=== PATIENT | female | born 1995 | race Caucasian/White ===

== ENCOUNTER → 2016-09-10 | Outpatient (CLI) | payer BC ==
[~2016-09-10] MED LIST: BCPILLS PO
[2016-09-12 13:22] LABS: CHLAMYDIA TRACH RNA*** NOT DETECTED (NOT DETECTED); GC (NEIS GONORRHOEAE)RNA** NOT DETECTED (NOT DETECTED)
== END | disposition home or self-care (01) ==
LOC: C.LABSPEC 13:44
PROVIDERS: ATTEND Obstetrics & Gynecology
DX: Z01.419 Encounter for gynecological examination (general) (routine) without abnormal findings (principal)

== ENCOUNTER 2016-12-15 21:11 | Observation (INO) | payer BC ==
[~2016-12-15] VITALS: Ht 160 cm; Wt 58.4 kg
[2016-12-15] MEDS ORDERED: SODIUM CHLORIDE 0.9% 1000ML 1,000 ML IV STA ×2 (21:32)
[2016-12-15 21:57] LABS: BASO % 0.2 %; BASO ABS # 0.03 K/uL (0-0.2); COMPLETE YES; EOS % 1.6 %; IG% 0.3 %; LYMPH ABS # 2.23 K/uL (1.2-3.4); MEAN CELL VOLUME 91.7 fL (80-100); MEAN CORPUSCULAR HEMOGLOBIN 31.6 pg (25-34); MEAN CORPUSCULAR HGB CONC 34.4 g/dl (32-36); MEAN PLATELET VOLUME 10.2 fL (7.4-10.4); MONO % 6.7 %; NEUT % 77.2 %; PLATELET COUNT 286 K/uL (130-400); RED BLOOD COUNT 4.69 M/uL (4.2-5.4); WHITE BLOOD COUNT 15.97 K/uL (4.8-10.8)
--- NOTE | 2016-12-15 22:10 | DIAGNOSTIC IMAGING REPORT ---
CT OF THE HEAD WITHOUT CONTRAST CLINICAL HISTORY: Syncope. Head injury. COMPARISON STUDY: Head CT July 24, 2010. CT DOSE: 537.48 mGy.cm TECHNIQUE: Helical axial images of the head were obtained without IV contrast. Automated exposure control was utilized for the study. FINDINGS: No acute intracranial hemorrhage, midline shift or mass effect is present. Brain volume is normal. Ventricular system is normal. The basilar cisterns are patent. There are no extra-axial collections. Salmon-white differentiation is maintained. There are no findings to suggest acute dural sinus thrombosis or acute territorial infarct. There is no calvarial fracture. Visualized portions of the sinuses and mastoid air cells are clear. IMPRESSION: No acute intracranial findings. Electronically signed by: Hosea Garcia M.D. 12/15/2016 10:09 PM Dictated Date/Time: 12/15/2016 10:06 PM
[2016-12-15 22:16] LABS: BUN/CREATININE RATIO 10.8 (10-20); CALCIUM 9.3 mg/dl (8.5-10.1); CREATININE 0.93 mg/dl (0.60-1.20); POTASSIUM 3.1 mmol/L (3.5-5.1)
[2016-12-15 22:27] LABS: PHOSPHORUS 2.7 mg/dl (2.5-4.9); THYROID STIMULATING HORMONE 2.27 uIu/ml (0.300-4.500)
[2016-12-15 22:31] LABS: PREG INTERNAL NEGATIVE QC NEG CLEAR BACKGROUND; PREG INTERNAL POSITIVE QC POS CONTROL LINE
[2016-12-15] MEDS ORDERED: BCPILLS PO (22:36)
[2016-12-15 22:44] LABS: URINE APPEARANCE CLEAR (CLEAR); URINE BILIRUBIN NEG (NEG); URINE COLOR YELLOW; URINE NITRITE NEG (NEG); URINE PH 7.5 (4.5-7.5); UROBILINOGEN NEG (NEG)
[2016-12-15 22:47] LABS: MANUAL MICROSCOPIC REQUIRED? NO; REVIEW REQ? NO
[2016-12-15] MEDS ORDERED: POTASSIUM CHLORIDE 10 MEQ TABCR PO STA (23:00)
[2016-12-15 23:07] LABS: BENZODIAZEPINE, URINE NEG (NEG); COCAINE,URINE NEG (NEG); PHENCYCLIDINE, URINE NEG (NEG)
[2016-12-15] MEDS ORDERED: ACETAMINOPHEN 325 MG TAB PO PRN (23:15)
[2016-12-15] MEDS ORDERED: MAGNESIUM HYDROXIDE SUSP 30 ML UDC PO PRN (23:15)
[2016-12-15] MEDS ORDERED: ALUMINUM/MAGNESIUM/SIMETH (MAALOX MAX) 30 ML UDC PO PRN (23:15)
[2016-12-15] MEDS ORDERED: POLYETHYLENE (MIRALAX) 17 GM PACK PO PRN (23:15)
[2016-12-15] MEDS ORDERED: ONDANSETRON INJ 2 MG/ML 2 ML VIAL IV PRN (23:15)
[2016-12-15] MEDS ORDERED: ACETAMINOPHEN 325 MG TAB ONE (23:32)
--- NOTE | 2016-12-15 23:53 | EMERGENCY ROOM VISIT NOTE ---
History First contact with patient: 21:25 Chief Complaint: SYNCOPE Stated Complaint: PASSED OUT 3 TIMES, DIZZINESS Nursing Triage Summary: pt reports multiple syncopal episodes today , vomitted X 1 after 1st episode denies cp or sob History of Present Illness The patient is a 21 year old female who presents to the Emergency Room with complaints of 3 syncopal episodes today. Patient states she got lightheaded and passed out and hit her head. She briefly passed out. She sat down had a piece of pizza and then passed out again and then one more time. All 3 of the syncopal episodes she got lightheaded prior to the syncopal episodes. This is all within 1 hour timeframe. She did vomit after the first syncopal episode. Patient states that she had an echo a few months ago that was negative. She had is that she was having chest pains. She does not know who did this. Patient states she has not eaten since lunch time. She was trying to get food around 8:30 tonight. She was not outside. 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 Patient denies chest pain, dyspnea, fever, chills, cold symptoms, recent illness, diarrhea, abdominal pain, numbness, tingling, weakness , vision problems, balance problems. She is tolerate by mouth fluids and foods. No family history of aneurysm or sudden . No cardiac history in the family. Patient denies alcohol or drug use. Patient states she felt fine all day. Review of Systems See HPI for pertinent positives & negatives. A total of 10 systems reviewed and were otherwise negative. Past Medical/Surgical History Medical Problems: (1) Syncope and collapse none Social History Smoking Status: Never Smoker Smokeless Tobacco Use: No Alcohol Use: none Drug Use: none Marital Status: in relationship Occupation Status: student Current/Historical Medications Scheduled Control Pills ( Control Pills), 1 TAB PO DAILY Allergies Coded Allergies: Banana (Unverified Allergy, Mild, 12/15/16) Latex1 -Allergic Contact Dermititis (Unverified Allergy, Mild, 12/15/16) Physical Exam Vital Signs Date Time Temp Pulse Resp B/P (MAP) Pulse Ox O2 Delivery O2 Flow Rate FiO2 12/15/16 23:29 99 18 103/58 99 Room Air 12/15/16 22:35 81 18 108/56 99 Room Air 12/15/16 22:18 74 111/51 97 104/64 97 95/77 12/15/16 21:48 90 12/15/16 21:18 36.8 88 18 103/66 99 Room Air Physical Exam VITALS: Vitals are noted on the nurse's note and reviewed by myself. Vital signs stable. GENERAL: Pleasant female answering questions appropriately, in no acute distress , nondiaphoretic, well-developed well-nourished. SKIN: The skin was without rashes, erythema, edema, or bruising. There is no tenting of the skin. Capillary reflex less than 2 seconds. HEAD: Normocephalic atraumatic. EARS: External auditory canals clear, tympanic membranes pearly salmon without erythema or effusion bilaterally. EYES: Pupils equal round and reactive to light and accommodation. Conjunctivae without injection, sclerae without icterus. Extraocular movements intact. NOSE: Patent, turbinates without inflammation or discharge. No sinus tenderness. MOUTH: Mucous membranes moist. Pharynx without erythema or exudate. Uvula midline. Airway patent. Tongue does not deviate. NECK: Supple without nuchal rigidity. No lymphadenopathy. No thyromegaly. Cervical spine is nontender. No JVD. HEART: Regular rate and rhythm without murmurs gallops or rubs. LUNGS: Clear to auscultation bilaterally without wheezes, rales or rhonchi. No dullness to percussion. No retractions or accessory muscle use. ABDOMEN: Positive bowel sounds x 4. Normal tympanic percussion. Soft, nontender, without masses or organomegaly. Poe sign negative. No guarding or rebound tenderness. MUSCULOSKELETAL: No muscle atrophy, erythema, or edema noted. 5 out of 5 strength throughout NEURO: Patient was alert and oriented to person place and time. Normal sensation to light and sharp touch. No focal neurological deficits. Cranial nerves II-12 grossly intact. No pronator drift. Cerebellar exam intact. Medical Decision & Procedures Laboratory Results 12/15/16 21:45 Red Blood Count 4.69, Mean Corpuscular Volume 91.7, Mean Corpuscular Hemoglobin 31.6, Mean Corpuscular Hemoglobin Concent 34.4, Mean Platelet Volume 10.2, Neutrophils (%) (Auto) 77.2, Lymphocytes (%) (Auto) 14.0, Monocytes (%) (Auto) 6.7, Eosinophils (%) (Auto) 1.6, Basophils (%) (Auto) 0.2, Neutrophils # (Auto) 12.34, Lymphocytes # (Auto) 2.23, Monocytes # (Auto) 1.07, Eosinophils # (Auto) 0.25, Basophils # (Auto) 0.03 12/15/16 21:45 Test 12/15/16 21:45 12/15/16 21:49 White Blood Count 15.97 K/uL (4.8-10.8) Red Blood Count 4.69 M/uL (4.2-5.4) Hemoglobin 14.8 g/dL (12.0-16.0) Hematocrit 43.0 % (37-47) Mean Corpuscular Volume 91.7 fL (80-100) Mean Corpuscular Hemoglobin 31.6 pg (25-34) Mean Corpuscular Hemoglobin Concent 34.4 g/dl (32-36) Platelet Count 286 K/uL (130-400) Mean Platelet Volume 10.2 fL (7.4-10.4) Neutrophils (%) (Auto) 77.2 % Lymphocytes (%) (Auto) 14.0 % Monocytes (%) (Auto) 6.7 % Eosinophils (%) (Auto) 1.6 % Basophils (%) (Auto) 0.2 % Neutrophils # (Auto) 12.34 K/uL (1.4-6.5) Lymphocytes # (Auto) 2.23 K/uL (1.2-3.4) Monocytes # (Auto) 1.07 K/uL (0.11-0.59) Eosinophils # (Auto) 0.25 K/uL (0-0.5) Basophils # (Auto) 0.03 K/uL (0-0.2) RDW Standard Deviation 41.7 fL (36.4-46.3) RDW Coefficient of Variation 12.4 % (11.5-14.5) Immature Granulocyte % (Auto) 0.3 % Immature Granulocyte # (Auto) 0.05 K/uL (0.00-0.02) Urine Color YELLOW Urine Appearance CLEAR (CLEAR) Urine pH 7.5 (4.5-7.5) Urine Specific [place] 1.010 (1.000-1.030) Urine Protein NEG (NEG) Urine Glucose (UA) NEG (NEG) Urine Ketones NEG (NEG) Urine Occult Blood NEG (NEG) Urine Nitrite NEG (NEG) Urine Bilirubin NEG (NEG) Urine Urobilinogen NEG (NEG) Urine Leukocyte Esterase NEG (NEG) Anion Gap 7.0 mmol/L (3-11) Est Creatinine Clear Calc Drug Dose 79.8 ml/min Estimated GFR () 102.5 Estimated GFR (Non- 88.5 BUN/Creatinine Ratio 10.8 (10-20) Calcium Level 9.3 mg/dl (8.5-10.1) Phosphorus Level 2.7 mg/dl (2.5-4.9) Magnesium Level 2.0 mg/dl (1.8-2.4) Total Bilirubin 0.4 mg/dl (0.2-1) Direct Bilirubin 0.1 mg/dl (0-0.2) Aspartate Amino Transf (AST/SGOT) 15 U/L (15-37) Alanine Aminotransferase (ALT/SGPT) 22 U/L (12-78) Alkaline Phosphatase 47 U/L (45-117) Total Protein 7.6 gm/dl (6.4-8.2) Albumin 4.0 gm/dl (3.4-5.0) Thyroid Stimulating Hormone (TSH) 2.270 uIu/ml (0.300-4.500) Human Chorionic Gonadotropin, Qual NEG (NEG) Urine Opiates Screen NEG (NEG) Urine Methadone, Qualitative NEG (NEG) Urine Barbiturates NEG (NEG) Urine Phencyclidine (PCP) Level NEG (NEG) Ur Amphetamine/Methamphetamine NEG (NEG) MDMA (Ecstasy) Screen NEG (NEG) Urine Benzodiazepines Screen NEG (NEG) Urine Cocaine Metabolite NEG (NEG) Urine Marijuana (THC) POS (NEG) Bedside Glucose 115 mg/dl (70-90) Medications Administered Medications (Trade) Dose Ordered Sig/Brooke Route Start Time Stop Time Status Last Admin Dose Admin Sodium Chloride 1,000 ml @ 999 mls/hr Q1H1M STAT IV 12/15/16 21:32 12/15/16 22:32 DC 12/15/16 21:32 999 MLS/HR Sodium Chloride 1,000 ml @ 125 mls/hr Q8H STAT IV 12/15/16 21:32 12/16/16 05:31 12/15/16 21:32 125 MLS/HR Potassium Chloride (Klor-Con M10) 40 meq NOW STAT PO 12/15/16 23:00 12/15/16 23:01 DC 12/15/16 23:28 40 MEQ ED Course Prior records/ancillary studies reviewed. Triage Nursing notes reviewed. Additional history obtained from family. The patient's history was concerning for syncope. Differential diagnosis: Etiologies such as vasovagal event, infection, hypoglycemia, electrolyte abnormalities, cardiac sources, intracerebral event, toxicologic, neurologic, as well as others were entertained. Physical examination: Patient alert, interactive and well-appearing ER treatment provided: IV hydration with normal saline On reassessment the patient felt better. Diagnostics interpretation by me: ECG: Normal sinus, normal intervals, no acute ST-T wave changes. Impression normal sinus rhythm interpreted by myself The labs revealed positive marijuana. Leukocytosis, most likely stress induced from syncopal episode Imaging studies: CT OF THE HEAD WITHOUT CONTRAST CLINICAL HISTORY: Syncope. Head injury. COMPARISON STUDY: Head CT July 24, 2010. CT DOSE: 537.48 mGy.cm TECHNIQUE: Helical axial images of the head were obtained without IV contrast. Automated exposure control was utilized for the study. FINDINGS: No acute intracranial hemorrhage, midline shift or mass effect is present. Brain volume is normal. Ventricular system is normal. The basilar cisterns are patent. There are no extra-axial collections. Salmon-white differentiation is maintained. There are no findings to suggest acute dural sinus thrombosis or acute territorial infarct. There is no calvarial fracture. Visualized portions of the sinuses and mastoid air cells are clear. IMPRESSION: No acute intracranial findings. Electronically signed by: Hosea Garcia M.D. 12/15/2016 10:09 PM I was unable to find the patient's recent echo. Case and is bent looked in [facility] system and was not there either. Consultation: A consultation was placed with Dr Nails, hospitalist. The case was discussed and diagnostics were reviewed. The patient was evaluated in the ER for further treatment. This appears to be consistent with recurrent syncope. Patient will be evaluated by medicine for possible admission. She had 3 syncopal episodes within 1 hour period. patient had a positive UDS screen. Mild hypokalemia. No other abnormality is in the above workup. Per family she had a negative echo within the past year. They're unsure who did this echo but wa done here in town. By the evaluation outlined above emergent etiologies such as infection, hypoglycemia, electrolyte abnormalities, cardiac sources, intracerebral event, toxicologic, neurologic,as well as others were deemed relatively unlikely. The pt informed about the findings as listed above. All questions were answered and pleased with the treatment. Case reviewed with my attending. Medical Decision As above Impression Primary Impression: Syncope Additional Impression: Hypokalemia Departure Information Dispostion Being Evaluated By Hospitalist Condition GOOD Referrals No Doctor, Assigned (PCP) Patient Instructions My [facility] Problem Qualifiers Primary Impression: Syncope Syncope type: unspecified Qualified Codes: R55 - Syncope and collapse
[2016-12-16] VITALS (9 sets, daily range): BP systolic 88–111; BP diastolic 51–70; PULSE 52–87; TEMP 36.3–36.9; O2SAT 97–100; Ht 160 cm; Wt 58.4 kg
[2016-12-16] MEDS ORDERED: IV FLUIDS COMPLETED PRN (01:30)
--- NOTE | 2016-12-16 01:32 | History and Physical ---
History & Physical Date & Time of Service: Dec 16, 2016 at 01:09 Chief Complaint: Syncope An Collapse Primary Care Physician: No Doctor, Assigned History of Present Illness Source: patient 21 y/o F - denies any active medical issues. Pt became acutely lightheaded and lost consciousness at a pizza place. There was no reported seizure activity, tongue biting or incontinence. She was not post-ictal. She recovered within less than one minute. She sat down afterward and became lightheaded and again lost consciousness. This occurred a third time prompting her to visit the ER. She had sustained minor head trauma after her initial syncopal episode. She has not had previous syncopal episodes. The pt states that for several years she has had short episodes of chest pain and shortness of breath. She recently had an echocardiogram, arranged by her primary MD, which she states was normal. Initial labs are notable for hypokalemia. An EKG shows an irregular sinus rhythm. Social History Smoking Status: Never Smoker Smokeless Tobacco Use: No Drug Use: none Marital Status: in relationship Housing status: lives with family Occupational Status: student Multi-Drug Resistant Organisms History of MDRO: No Allergies Coded Allergies: Banana (Unverified Allergy, Mild, 12/15/16) Latex1 -Allergic Contact Dermititis (Unverified Allergy, Mild, 12/15/16) Home Medications Scheduled Control Pills ( Control Pills), 1 TAB PO DAILY Review of Systems Constitutional: No fever, No chills, No sweats Eyes: No worsening of vision ENT: No hearing loss, No unusual epistaxis, No nasal symptoms Respiratory: No cough, No sputum, No wheezing Cardiovascular: No chest pain, No orthopnea, No PND Abdomen: No pain, No nausea, No vomiting Musculoskeletal: No joint pain Genitourinary - Female: No dysuria, No urinary frequency, No urinary urgency Neurologic: + problem reported (syncope x 3 as above), No memory loss, No paralysis, No weakness Psychiatric: No depression symptoms Endocrine: No fatigue Hematologic / Lymphatic: No abnormal bleeding/bruising Integumentary: No rash Allergic / Immunologic: No environmental allergies Physical Exam Vital Signs Date Time Temp Pulse Resp B/P (MAP) Pulse Ox O2 Delivery O2 Flow Rate FiO2 12/16/16 00:30 36.9 70 16 101/63 100 Room Air 12/15/16 23:29 99 18 103/58 99 Room Air 12/15/16 22:35 81 18 108/56 99 Room Air 12/15/16 22:18 74 111/51 97 104/64 97 95/77 12/15/16 21:48 90 12/15/16 21:18 36.8 88 18 103/66 99 Room Air General Appearance: WD/WN, no apparent distress Head: normocephalic Eyes: normal inspection, PERRL, EOMI ENT: normal ENT inspection, pharynx normal Neck: supple, no JVD Respiratory/Chest: chest non-tender, lungs clear, normal breath sounds Cardiovascular: regular rate, rhythm, no edema, no gallop, + systolic murmur (2 /6) Abdomen/GI: normal bowel sounds, non tender, soft Back: normal inspection, no CVA tenderness, no muscle spasm, normal range of motion Extremities/Musculoskelatal: normal inspection, no calf tenderness, normal capillary refill, no pedal edema, normal range of motion 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: 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 as tested, no motor/sensory deficits, alert, normal mood/affect, normal reflexes, oriented x 3 Skin: normal color, warm/dry, no rash Diagnostics Laboratory Results Results Past 24 Hours Test 12/15/16 21:45 12/15/16 21:49 Range/Units White Blood Count 15.97 4.8-10.8 K/uL Red Blood Count 4.69 4.2-5.4 M/uL Hemoglobin 14.8 12.0-16.0 g/dL Hematocrit 43.0 37-47 % Mean Corpuscular Volume 91.7 80-100 fL Mean Corpuscular Hemoglobin 31.6 25-34 pg Mean Corpuscular Hemoglobin Concent 34.4 32-36 g/dl Platelet Count 286 130-400 K/uL Mean Platelet Volume 10.2 7.4-10.4 fL Neutrophils (%) (Auto) 77.2 % Lymphocytes (%) (Auto) 14.0 % Monocytes (%) (Auto) 6.7 % Eosinophils (%) (Auto) 1.6 % Basophils (%) (Auto) 0.2 % Neutrophils # (Auto) 12.34 1.4-6.5 K/uL Lymphocytes # (Auto) 2.23 1.2-3.4 K/uL Monocytes # (Auto) 1.07 0.11-0.59 K/uL Eosinophils # (Auto) 0.25 0-0.5 K/uL Basophils # (Auto) 0.03 0-0.2 K/uL RDW Standard Deviation 41.7 36.4-46.3 fL RDW Coefficient of Variation 12.4 11.5-14.5 % Immature Granulocyte % (Auto) 0.3 % Immature Granulocyte # (Auto) 0.05 0.00-0.02 K/uL Urine Color YELLOW Urine Appearance CLEAR CLEAR Urine pH 7.5 4.5-7.5 Urine Specific [place] 1.010 1.000-1.030 Urine Protein NEG NEG Urine Glucose (UA) NEG NEG Urine Ketones NEG NEG Urine Occult Blood NEG NEG Urine Nitrite NEG NEG Urine Bilirubin NEG NEG Urine Urobilinogen NEG NEG Urine Leukocyte Esterase NEG NEG Sodium Level 141 136-145 mmol/L Potassium Level 3.1 3.5-5.1 mmol/L Chloride Level 106 98-107 mmol/L Carbon Dioxide Level 28 21-32 mmol/L Anion Gap 7.0 3-11 mmol/L Blood Urea Nitrogen 10 7-18 mg/dl Creatinine 0.93 0.60-1.20 mg/dl Est Creatinine Clear Calc Drug Dose 79.8 ml/min Estimated GFR () 102.5 Estimated GFR (Non- 88.5 BUN/Creatinine Ratio 10.8 10-20 Random Glucose 106 70-99 mg/dl Calcium Level 9.3 8.5-10.1 mg/dl Phosphorus Level 2.7 2.5-4.9 mg/dl Magnesium Level 2.0 1.8-2.4 mg/dl Total Bilirubin 0.4 0.2-1 mg/dl Direct Bilirubin 0.1 0-0.2 mg/dl Aspartate Amino Transf (AST/SGOT) 15 15-37 U/L Alanine Aminotransferase (ALT/SGPT) 22 12-78 U/L Alkaline Phosphatase 47 45-117 U/L Total Protein 7.6 6.4-8.2 gm/dl Albumin 4.0 3.4-5.0 gm/dl Thyroid Stimulating Hormone (TSH) 2.270 0.300-4.500 uIu/ml Human Chorionic Gonadotropin, Qual NEG NEG Urine Opiates Screen NEG NEG Urine Methadone, Qualitative NEG NEG Urine Barbiturates NEG NEG Urine Phencyclidine (PCP) Level NEG NEG Ur Amphetamine/Methamphetamine NEG NEG MDMA (Ecstasy) Screen NEG NEG Urine Benzodiazepines Screen NEG NEG Urine Cocaine Metabolite NEG NEG Urine Marijuana (THC) POS NEG Bedside Glucose 115 70-90 mg/dl Diagnostic Radiology CT head: no acute findings Impression Assessment and Plan 21 y/o F - denies any active medical issues. Pt became acutely lightheaded and lost consciousness at a pizza place. There was no reported seizure activity, tongue biting or incontinence. She was not post-ictal. She recovered within less than one minute. She sat down afterward and became lightheaded and again lost consciousness. This occurred a third time prompting her to visit the ER. She had sustained minor head trauma after her initial syncopal episode. She has not had previous syncopal episodes. The pt states that for several years she has had short episodes of chest pain and shortness of breath. She recently had an echocardiogram, arranged by her primary MD, which she states was normal. Initial labs are notable for hypokalemia. An EKG shows an irregular sinus rhythm. 1) Syncope - will be monitored on telemetry overnight. Description of episode is consistent with vaso-vagal syncope. She recently had an echo which should be sourced AM. May need a Halter if this recurs. She did not have any CP or SOB during her syncopal episodes. 2) Murmur is present on exam - EKG is irregular - Source recent echo. 3) Hypokalemia - replaced Full code - SCDs Total time for this admit including review of labs, meds, EKG - discussion with pt and ER attending 30 min Level of Care Telemetry Advanced Directives Existing Living Will: No Existing Power of Shield Operator: No Resuscitation Status FULL RESUSCITATION VTE Prophylaxis VTE Risk Assessment Done? Y/N: Yes Risk Level: Very Low Given or contraindicated: SCD's
[2016-12-16] MEDS ORDERED: DEXTROSE 5% IV ONE (02:00)
[2016-12-16] MEDS ORDERED: MAG SULFATE IV ONE (02:00)
[2016-12-16] MEDS: D5NSS + 20MEQ KCL 1,000 ML IV SCH ×2 (02:38→07:45)
[2016-12-16 08:37] LABS: BUN/CREATININE RATIO 15.8 (10-20); CALCIUM 8.4 mg/dl (8.5-10.1); CREATININE 0.65 mg/dl (0.60-1.20)
[2016-12-16 08:38] LABS: POTASSIUM 4.1 mmol/L (3.5-5.1)
--- NOTE | 2016-12-16 13:57 | Hospitalist Progress Note ---
Hospitalist Progress Note Date of Service Dec 16, 2016. Subjective Pt evaluation today including: conversation w/ patient, conversation w/ family , physical exam, chart review, lab review, review of studies, review of inpatient medication list Patient seen and evaluated with family at bedside. Tele reviewed and no arrhythmias noted. Runs NSR with mild occ. elif in mid-50s. Reports H/O anemia (per mother) stating they figured she was having GI bleeding but couldn't find the source and this resolved and this was when she was a young child. Reports ongoing H/O intermittent CP with the longest episode lasting 15 minutes which prompted the echo 4 months ago. She still follows with a [facility] for her primary care. She has no knowledge of a murmur. Tox screen was positive for marijuana but did not discuss with with patient due to family members at bedside. No known family members with heart issues or sudden cardiac due to HOCM. Patient played sports at a younger age and didn't have syncopal issues. She is able to recall the events leading up to her syncopal episodes and no focal neuro deficits and no seizure-like activity. Constitutional: + problem reported (throbbing headache), No fever, No chills Eyes: No worsening of vision ENT: No hearing loss, No nasal symptoms, No trouble swallowing Respiratory: No cough, No shortness of breath Cardiovascular: No chest pain, No palpitations Abdomen: No pain, No nausea, No vomiting, No diarrhea, No constipation Musculoskeletal: No swelling, No calf pain Female : No dysuria Skin: No rash, No itch Medications Current Inpatient Medications Medications (Trade) Dose Ordered Sig/Brooke Route Start Time Stop Time Status Last Admin Dose Admin Acetaminophen (Tylenol Tab) 650 mg Q4H PRN PO 12/15/16 23:15 01/14/17 23:14 Al Hydrox/Mg Hydrox/Simethicone (Maalox Max Susp) 15 ml Q4H PRN PO 12/15/16 23:15 01/14/17 23:14 Magnesium Hydroxide (Milk Of Magnesia Susp) 30 ml Q12H PRN PO 12/15/16 23:15 01/14/17 23:14 Ondansetron HCl (Zofran Inj) 4 mg Q6H PRN IV 12/15/16 23:15 01/14/17 23:14 Polyethylene (Miralax Powder Packet) 17 gm DAILY PRN PO 12/15/16 23:15 01/14/17 23:14 Potassium Chloride/Dextrose/ Sod Cl 1,000 ml @ 150 mls/hr Q6H40M IV 12/16/16 02:00 12/16/16 15:19 12/16/16 07:45 150 MLS/HR Miscellaneous (Iv Fluids Completed) 1 ea PRN PRN N/A 12/16/16 01:30 12/16/17 01:29 Objective Vital Signs Date Time Temp Pulse Resp B/P (MAP) Pulse Ox O2 Delivery O2 Flow Rate FiO2 12/16/16 11:54 Room Air 12/16/16 11:11 36.3 52 16 102/65 (77) 100 60 99/64 (76) 58 111/69 (83) 12/16/16 08:53 Room Air 12/16/16 07:56 36.8 68 15 88/54 (65) 100 91/54 (66) 12/16/16 07:45 Room Air 12/16/16 04:00 36.7 65 18 92/51 (65) 99 Room Air 12/16/16 04:00 Room Air 12/16/16 00:45 87 98/63 (75) 12/16/16 00:45 80 103/68 (80) 12/16/16 00:45 80 101/63 (76) 12/16/16 00:30 36.9 70 16 101/63 100 Room Air 12/15/16 23:29 99 18 103/58 99 Room Air 12/15/16 22:35 81 18 108/56 99 Room Air 12/15/16 22:18 74 111/51 97 104/64 97 95/77 12/15/16 21:48 90 12/15/16 21:18 36.8 88 18 103/66 99 Room Air Physical Exam General Appearance: WD/WN, no apparent distress Eyes: sclerae normal ENT: hearing grossly normal Neck: supple, no JVD, trachea midline Respiratory/Chest: lungs clear, normal breath sounds, no respiratory distress, no accessory muscle use Cardiovascular: regular rate, rhythm, no gallop, no murmur, + pertinent finding (possibly an extra click sound but unable to apprec. murmur) Abdomen: normal bowel sounds, non tender, soft Extremities: non-tender, no pedal edema 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iatric: alert, oriented x 3 Skin: normal color, warm/dry Laboratory Results Last 24 Hours Test 12/15/16 21:45 12/15/16 21:49 12/16/16 08:02 White Blood Count 15.97 K/uL Red Blood Count 4.69 M/uL Hemoglobin 14.8 g/dL Hematocrit 43.0 % Mean Corpuscular Volume 91.7 fL Mean Corpuscular Hemoglobin 31.6 pg Mean Corpuscular Hemoglobin Concent 34.4 g/dl Platelet Count 286 K/uL Mean Platelet Volume 10.2 fL Neutrophils (%) (Auto) 77.2 % Lymphocytes (%) (Auto) 14.0 % Monocytes (%) (Auto) 6.7 % Eosinophils (%) (Auto) 1.6 % Basophils (%) (Auto) 0.2 % Neutrophils # (Auto) 12.34 K/uL Lymphocytes # (Auto) 2.23 K/uL Monocytes # (Auto) 1.07 K/uL Eosinophils # (Auto) 0.25 K/uL Basophils # (Auto) 0.03 K/uL RDW Standard Deviation 41.7 fL RDW Coefficient of Variation 12.4 % Immature Granulocyte % (Auto) 0.3 % Immature Granulocyte # (Auto) 0.05 K/uL Urine Color YELLOW Urine Appearance CLEAR Urine pH 7.5 Urine Specific [place] 1.010 Urine Protein NEG Urine Glucose (UA) NEG Urine Ketones NEG Urine Occult Blood NEG Urine Nitrite NEG Urine Bilirubin NEG Urine Urobilinogen NEG Urine Leukocyte Esterase NEG Sodium Level 141 mmol/L 143 mmol/L Potassium Level 3.1 mmol/L 4.1 mmol/L Chloride Level 106 mmol/L 114 mmol/L Carbon Dioxide Level 28 mmol/L 25 mmol/L Anion Gap 7.0 mmol/L 4.0 mmol/L Blood Urea Nitrogen 10 mg/dl 10 mg/dl Creatinine 0.93 mg/dl 0.65 mg/dl Est Creatinine Clear Calc Drug Dose 79.8 ml/min 114.2 ml/min Estimated GFR () 102.5 148.1 Estimated GFR (Non- 88.5 127.8 BUN/Creatinine Ratio 10.8 15.8 Random Glucose 106 mg/dl 92 mg/dl Calcium Level 9.3 mg/dl 8.4 mg/dl Phosphorus Level 2.7 mg/dl Magnesium Level 2.0 mg/dl Total Bilirubin 0.4 mg/dl Direct Bilirubin 0.1 mg/dl Aspartate Amino Transf (AST/SGOT) 15 U/L Alanine Aminotransferase (ALT/SGPT) 22 U/L Alkaline Phosphatase 47 U/L Total Protein 7.6 gm/dl Albumin 4.0 gm/dl Thyroid Stimulating Hormone (TSH) 2.270 uIu/ml Human Chorionic Gonadotropin, Qual NEG Urine Opiates Screen NEG Urine Methadone, Qualitative NEG Urine Barbiturates NEG Urine Phencyclidine (PCP) Level NEG Ur Amphetamine/Methamphetamine NEG MDMA (Ecstasy) Screen NEG Urine Benzodiazepines Screen NEG Urine Cocaine Metabolite NEG Urine Marijuana (THC) POS Bedside Glucose 115 mg/dl Assessment and Plan 21 y/o F - denies any active medical issues. Pt became acutely lightheaded and [place] consciousness at a pizza place. There was no reported seizure activity, tongue biting or incontinence. She was not post-ictal. She recovered within less than one minute. She sat down afterward and became lightheaded and again lost consciousness. This occurred a third time prompting her to visit the ER. She had sustained minor head trauma after her initial syncopal episode. She has not had previous syncopal episodes. The pt states that for several years she has had short episodes of chest pain and shortness of breath. She recently had an echocardiogram, arranged by her primary MD, which she states was normal. Initial labs are notable for hypokalemia. An EKG shows an irregular sinus rhythm. Syncope and Collapse: - No further syncopal episodes during hospital stay. Does have a throbbing headache. No arrhythmia on monitor - No FMHx of sudden cardiac suggesting HOCM - Would likely benefit from Holter monitoring if echocardiogram is unremarkable Murmur: - Was not able to appreciate on examination but a possible click noise - possible MVP? - Intial EKG with NSR with sinus arrhythmia that was not present on repeat EKG Hypokalemia: RESOLVED - Monitor and replete as necessary DVT Prophylaxis: DARI/SCDs Disposition: Monitor throughout the day for any further arrhythmias and check echo. - Likely D/C tomorrow with possible holter monitoring Continued [facility] stay due to: other (rhythm monitoring) Discharge planning: home
[2016-12-17 00:24] VITALS: BP 105/71; PULSE 60; TEMP 36.9; O2SAT 99
[2016-12-17 04:00] VITALS: BP 96/61; PULSE 71; TEMP 36.6; O2SAT 97
[2016-12-17 07:44] VITALS: BP 96/61; PULSE 65; TEMP 36.6; O2SAT 98
[2016-12-17 09:03] VITALS: BP_SYST 100; BP_SYST 104; BP_SYST 91; BP_DIAS 58; BP_DIAS 64; BP_DIAS 69; PULSE 69; TEMP 36.8; O2SAT 97
--- NOTE | 2016-12-17 09:36 | ECHOCARDIOGRAM REPORT ---
*NOTICE TO RECEIVING LIBERTARIAN AGENCY This information is strictly Confidential and protected under [place] law. [place] law prohibits you from making any further disclosure of this information unless further disclosure is expressly permitted by the written consent of the person to whom it pertains or is authorized by law. A general authorization for the release of medical or other information is not sufficient for this purpose. Hospital accepts no responsibility if the information is made available to any other person, INCLUDING THE PATIENT. Interpretation Summary * Name: YAMINI PERRY Study Date: 12/17/2016 08:33 AM BP: 96/61 mmHg * Patient Location: [facility]\S\N275\S\2 HR: 65 * : 1995 (M/d/yyyy) Gender: Female Height: 63 in * Age: 21 yrs Ethnicity: CA Weight: 128 lb * Ordering Physician: Brijesh Jean Baptiste * Performed By: Barby Choi * * Reason For Study: SYNCOPE * BSA: 1.6 m2 * Normal transthoracic echocardiogram. * -- Conclusions -- * Left ventricular systolic function is normal. * Right ventricular systolic pressure is normal. Procedure Details * A complete two-dimensional transthoracic echocardiogram was performed (2D, M-mode, Doppler and color flow Doppler). Left Ventricle * The left ventricle is normal in size. * There is normal left ventricular wall thickness. * Ejection Fraction = 55-60%. * Left ventricular systolic function is normal. Right Ventricle * The right ventricle is normal in size and function. Atria * The left atrial size is normal. * Right atrial size is normal. Mitral Valve * The mitral valve is grossly normal. * Significant mitral regurgitation is absent. Tricuspid Valve * The tricuspid valve is not well visualized, but is grossly normal. * There is trace tricuspid regurgitation. * Right ventricular systolic pressure is normal. Aortic Valve * The aortic valve is normal in structure and function. * No hemodynamically significant valvular aortic stenosis. * There is no significant aortic regurgitation. Pericardium/Pleural * There is no pericardial effusion. Great Vessels * Normal inferior vena cava diameter and respiratory variation suggests normal central venous pressure. MMode 2D Measurements and Calculations IVSd 0.71 cm IVSs 0.96 cm LVIDd 4.3 cm LVIDs 3.1 cm LVPWd 0.95 cm LVPWs 1.4 cm IVS/LVPW 0.75 FS 28.2 % EDV(Teich) 84.1 ml ESV(Teich) 38.0 ml EF(Teich) 54.8 % EDV(cubed) 80.8 ml ESV(cubed) 29.9 ml EF(cubed) 63.0 % % IVS thick 34.5 % % LVPW thick 48.9 % LV mass(C)d 112.1 grams LV mass(C)dI 70.1 grams/m\S\2 LV mass(C)s 112.7 grams LV mass(C)sI 70.5 grams/m\S\2 SV(Teich) 46.1 ml SI(Teich) 28.8 ml/m\S\2 SV(cubed) 50.9 ml SI(cubed) 31.8 ml/m\S\2 ACS 1.3 cm LA dimension 2.4 cm asc Aorta Diam 2.6 cm LVOT diam 1.6 cm LVOT area 2.0 cm\S\2 LVAd ap4 30.0 cm\S\2 LVLd ap4 8.2 cm EDV(MOD-sp4) 89.3 ml EDV(sp4-el) 92.4 ml LVAs ap4 17.4 cm\S\2 LVLs ap4 6.7 cm ESV(MOD-sp4) 38.3 ml ESV(sp4-el) 38.1 ml EF(MOD-sp4) 57.1 % EF(sp4-el) 58.8 % LVAd ap2 31.5 cm\S\2 LVLd ap2 8.6 cm EDV(MOD-sp2) 97.6 ml EDV(sp2-el) 97.9 ml LVAs ap2 18.2 cm\S\2 LVLs ap2 6.9 cm ESV(MOD-sp2) 39.9 ml ESV(sp2-el) 41.0 ml EF(MOD-sp2) 59.1 % EF(sp2-el) 58.1 % LVLd %diff 4.0 % EDV(MOD-bp) 95.4 ml LVLs %diff 2.3 % ESV(MOD-bp) 40.0 ml EF(MOD-bp) 58.1 % SV(MOD-sp4) 51.0 ml SI(MOD-sp4) 31.9 ml/m\S\2 SV(MOD-sp2) 57.7 ml SI(MOD-sp2) 36.1 ml/m\S\2 SV(MOD-bp) 55.4 ml SI(MOD-bp) 34.7 ml/m\S\2 SV(sp4-el) 54.4 ml SI(sp4-el) 34.0 ml/m\S\2 SV(sp2-el) 56.9 ml SI(sp2-el) 35.6 ml/m\S\2 Doppler Measurements and Calculations MV E max jo 96.0 cm/sec MV A max jo 48.5 cm/sec MV E/A 2.0 MV dec time 0.25 sec Ao V2 max 138.9 cm/sec Ao max PG 7.7 mmHg Ao max PG (full) 2.9 mmHg CARSON(V,A) 1.6 cm\S\2 CARSON(V,D) 1.6 cm\S\2 LV V1 max PG 4.8 mmHg LV V1 max 109.5 cm/sec PA V2 max 66.3 cm/sec PA max PG 1.8 mmHg PI end-d jo 85.9 cm/sec TR max jo 200.1 cm/sec
--- NOTE | 2016-12-17 11:42 | Discharge Instructions ---
Discharge Instructions Date of Service Dec 17, 2016. Admission Reason for Admission: Syncope An Collapse Discharge Discharge Diagnosis / Problem: Syncope and Collapse, possible from vasovagal or dehydration Discharge Goals Goal(s): Decrease discomfort, Improve function, Increase independence, Improve disease control, Improve nutritional status, Learn about illness, Diagnostic testing, Therapeutic intervention, Prevent Disease Progression, Specific goals Activity Recommendations Activity Limitations: resume your previous activity (as tolerated) . Instructions / Follow-Up Instructions / Follow-Up you have Syncope and Collapse, possible from vasovagal or dehydration you have Hypokalemia: you can take over the counter Aleve, for headache and neck pain ( take Aleve as instructed and after snack) you was using marijuana, I would recommend to stay away of this substance - you need to follow up with your primary care physician in 1 week, we are helping you to set up appointment - you possible need to have outpatient Holter monitor setting up with primary care physician and then follow up - take medication as instructed, never overdose or any misuse, or take with alcohol, because misuse of medicine may cause organ damage or , call your primary care physician if have questions of medications. - call your primary care physician OR go to local emergency room if has any fever/chill, chest pain, shortness of breathing, nausea/vomiting/abdominal pain , facial droop/slurry speech/local weakness, or if has any questions. - fall precaution - diet as instructed - you should understand that it is important to follow up the above instruction , and "not following the above instruction" may cause delayed or missed care of your medical conditions which may cause permanent organ damage and even . Current Hospital Diet Patient's current hospital diet: Regular Diet Discharge Diet Recommended Diet: Regular Diet Pending Studies Studies pending at discharge: yes List of pending studies: Echocardiogram results, and cervical spine x-ray Laboratory Results Meds Administered (Past 24Hrs) Medications (Trade) Dose Ordered Sig/Brooke Route Start Time Stop Time Status Last Admin Dose Admin Sodium Chloride 1,000 ml @ 999 mls/hr Q1H1M STAT IV 12/15/16 21:32 12/15/16 22:32 DC 12/15/16 21:32 999 MLS/HR Sodium Chloride 1,000 ml @ 125 mls/hr Q8H STAT IV 12/15/16 21:32 12/16/16 01:41 DC 12/15/16 21:32 125 MLS/HR Potassium Chloride (Klor-Con M10) 40 meq NOW STAT PO 12/15/16 23:00 12/15/16 23:01 DC 12/15/16 23:28 40 MEQ Acetaminophen (Tylenol Tab) 650 mg Q4H PRN PO 12/15/16 23:15 01/14/17 23:14 12/16/16 18:32 650 MG Magnesium Sulfate 0.5 gm/Dextrose 101 ml @ 100 mls/hr NOW ONCE IV 12/16/16 02:00 12/16/16 03:00 DC 12/16/16 02:38 100 MLS/HR Potassium Chloride/Dextrose/ Sod Cl 1,000 ml @ 150 mls/hr Q6H40M IV 12/16/16 02:00 12/16/16 15:19 DC 12/16/16 07:45 150 MLS/HR Acetaminophen (Tylenol Tab) 650 mg STK-MED ONCE .ROUTE 12/15/16 23:32 12/15/16 23:33 DC 12/15/16 23:32 650 MG Ethinyl Estradiol/ Norethindrone (Junel (21 Day)) 1 tab DAILY@1300 PO 12/16/16 20:45 01/15/17 20:44 12/16/16 21:39 1 TAB Work Instructions Return To Work: 2 days (if feeling better) Medical Emergencies . Who to Call and When: Medical Emergencies: If at any time you feel your situation is an emergency, please call 911 immediately. . Non-Emergent Contact Non-Emergency issues call your: Primary Care Provider . . "Provider Documentation" section prepared by Brijesh Jean Baptiste. . VTE Core Measure Inpt VTE Proph given/why not?: SCD's
--- NOTE | 2016-12-17 12:02 | Discharge Summary ---
Discharge Summary Date of Service Dec 17, 2016. Discharge Summary Admission Date: Dec 15, 2016 at 23:19 Discharge Date: Dec 17, 2016 Discharge Disposition: Home Principal Diagnosis: Syncope and Collapse: Etiology unknown Problems/Secondary Diagnoses: Syncope and Collapse: Etiology unknown Dehydration Neck pain from the fall Headache from the fall Hypokalemia: using marijuana Procedures: Head CT, cervical spine x-ray, Consultations: No Medication Reconciliation Continued Medications: Control Pills ( Control Pills) Tab 1 TAB PO DAILY, TAB Discharge Exam Reports some frontal head headache, was started from the fall prior to admission , is not getting worse, denied dizziness deny blurry vision or double vision, denied tingling any numbness Review of Systems: Constitutional: No fever, No chills, No sweats, No weight loss, No weakness , No fatigue, No problem reported Eyes: No worsening of vision, No eye pain, No redness, No discharge, No diplopia, No problem reported ENT: + problem reported (bilateral jaw mild tender when opening mouth), No hearing loss, No unusual epistaxis, No nasal symptoms, No sore throat, No tinnitus, No dental problems, No trouble swallowing Respiratory: No cough, No sputum, No wheezing, No shortness of breath, No dyspnea on exertion, No dyspnea at rest, No hemoptysis, No problem reported Cardiovascular: No chest pain, No orthopnea, No PND, No edema, No claudication, No palpitations, No problem reported Abdomen: No pain, No nausea, No vomiting, No diarrhea, No constipation, No GI bleeding, No problem reported Musculoskeletal: + problem reported (mild neck pain) Genitourinary - Female: No dysuria, No urinary frequency, No urinary urgency , No urinary incontinence, No urinary retention, No hematuria, No dysmenorrhea, No menorrhagia, No metrorrhagia, No rash, No vaginal bleeding, No vaginal discharge, No vaginal itching, No vulvodynia, No , No problem reported Neurologic: No memory loss, No paralysis, No weakness, No numbness/tingling , No vertigo, No balance problems, No problem reported Psychiatric: No depression symptoms, No anhedonism, No anxiety, No insomnia , No substance abuse, No problem reported Endocrine: No fatigue, No excessive thirst, No excessive urination, No problem reported Hematologic / Lymphatic: No abnormal bleeding/bruising, No clotting problems , No swollen lymph nodes, No night sweats, No problem reported Integumentary: No rash, No itch, No new/changing skin lesions, No color change, No bleeding, No problem reported Physical Exam: General Appearance: WD/WN, no apparent distress Eyes: normal inspection, PERRL, EOMI ENT: normal ENT inspection, hearing grossly normal, TMs normal, pharynx normal, + pertinent finding (no limitation of opening mouth or chewing) Neck: supple, no adenopathy, thyroid normal, no JVD Respiratory/Chest: chest non-tender, lungs clear, normal breath sounds, no respiratory distress, no accessory muscle use Cardiovascular: regular rate, rhythm, no edema, no gallop, no JVD, no murmur , normal peripheral pulses Abdomen / GI: normal bowel sounds, non tender, soft, no organomegaly, no pulsatile mass, normal rectal exam, occult blood negative Extremities: normal inspection, no calf tenderness, normal capillary refill , no pedal edema, normal range of motion 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iatric: floor cashier II-XII nml as tested, no motor/sensory deficits , alert, normal mood/affect, normal reflexes Skin: normal color, warm/dry, no rash Hospital Course 21 y/o F admitted on 12/16/2016 because of syncope and collapse, she was became acutely lightheaded and lost consciousness at a pizza place. There was no reported seizure activity, tongue biting or incontinence. She was not post-ictal. She recovered within less than one minute. She sat down afterward and became lightheaded and again lost consciousness. This occurred a third time prompting her to visit the ER. She had sustained minor head trauma after her initial syncopal episode. She has not had previous syncopal episodes. The pt states that for several years she has had short episodes of chest pain and shortness of breath. She recently had an echocardiogram, arranged by her primary MD, which she states was normal. Initial labs are notable for hypokalemia. An EKG shows an irregular sinus rhythm. Syncope and Collapse: Etiology unknown, differential diagnosis include arrhythmia, PE, hypothyroidism, stroke, and vasovagal Has been on school bus monitor, no us no any arrhythmia identified, however patient possible need to follow-up with PCP to set up Holter monitor or event monitor as an outpatient - No further syncopal episodes during hospital stay. Does have a throbbing headache. No arrhythmia on monitor - No FMHx of sudden cardiac suggesting HOCM - echocardiogram was done, which was unremarkable - Orthostatic pressure was check which was negative, - Mild frontal headache from the fall, is not getting worse, advised her to take Tylenol as needed, or take Aleve as needed - Mild mid posterior cervical spine pain in the examination, cervical spine x- ray is done, which was unremarkable Hypokalemia upon admission: RESOLVED Possible illicit drug use with the urine drug screening positive for marijuana , patient did admit about using marijuana couple weeks ago, not using any other recreational drug in addition to marijuana Possible dehydration upon admission Has been on IV fluid, and Encourage more eating and drinking Discussed with mom and patient in detail about conditions and care plan, is having insurance case manager to set up follow-up appointment with primary care physician Instructions / Follow-Up you have Syncope and Collapse, possible from vasovagal or dehydration you have Hypokalemia: you can take over the counter Aleve, for headache and neck pain ( take Aleve as instructed and after snack) you was using marijuana, I would recommend to stay away of this substance - you need to follow up with your primary care physician in 1 week, we are helping you to set up appointment - you possible need to have outpatient Holter monitor setting up with primary care physician and then follow up - take medication as instructed, never overdose or any misuse, or take with alcohol, because misuse of medicine may cause organ damage or , call your primary care physician if have questions of medications. - call your primary care physician OR go to local emergency room if has any fever/chill, chest pain, shortness of breathing, nausea/vomiting/abdominal pain , facial droop/slurry speech/local weakness, or if has any questions. - fall precaution - diet as instructed - you should understand that it is important to follow up the above instruction , and "not following the above instruction" may cause delayed or missed care of your medical conditions which may cause permanent organ damage and even . Total Time Spent: Greater than 30 minutes This includes examination of the patient, discharge planning, medication reconciliation, and communication with other providers. Discharge Instructions Please refer to the electronic Patient Visit Report (Discharge Instructions) for additional information.
--- NOTE | 2016-12-17 12:29 | DIAGNOSTIC IMAGING REPORT ---
CERVICAL SPINE 2 OR 3 VIEWS CLINICAL HISTORY: 21 years-old Female presenting with neck pain. TECHNIQUE: Frontal, lateral, and open-mouth odontoid views of the cervical spine were obtained. COMPARISON: None. FINDINGS: The C7 vertebral body is fully visualized. Slight reversal of normal cervical lordosis, which may be positional. Vertebral body heights and alignment otherwise preserved. Intervertebral disc spaces maintained. No radiographic evidence of acute fracture or subluxation. The lateral masses of C1 articulate normally with C2. No prevertebral soft tissue swelling. Lung apices clear. IMPRESSION: 1. No radiographic evidence of acute osseous injury of the cervical spine. Normal radiographic appearance of the soft tissues of the neck. Electronically signed by: Buddy Gandara M.D. 12/17/2016 12:28 PM Dictated Date/Time: 12/17/2016 12:26 PM
[2016-12-17 14:00] VITALS: BP 91/58; PULSE 69; TEMP 36.8; O2SAT 97
== END 2016-12-17 14:37 | disposition home or self-care (01) ==
LOC: C.EDB 21:12 → C.MED 23:19 → ENRESERV 23:42
PROVIDERS: ADMIT Internal Medicine; ATTEND Hospitalist
DX: R55 Syncope and collapse (principal); E87.6 Hypokalemia; Z79.3 Long term (current) use of hormonal contraceptives; W19.XXXA Unspecified fall, initial encounter

== ENCOUNTER → 2017-10-22 | Outpatient (CLI) | payer BC | END | disposition home or self-care (01) | LOC: C.LABSPEC 11:57 | PROVIDERS: ATTEND Obstetrics & Gynecology | DX: Z01.419 Encounter for gynecological examination (general) (routine) without abnormal findings (principal) ==